=== PATIENT | male | born 2000 | race Caucasian/White ===

== ENCOUNTER 2021-03-02 05:38 | Emergency (ER) | payer OTHER ==
[~2021-03-02 05:38] MED LIST: ATARAX25 MG PO
[2021-03-02 06:38] LABS: BASOPHIL 0.7 % (0-2); EOSINOPHIL 6.5 % (0-5); HCT 40.6 % (42.0-52.0); HGB 13.5 g/dl (13.2-18.0); LYMPHOCYTE 45.2 % (15-48); MCH 29.8 pg (25.0-31.0); MCHC 33.3 g/dL (32.0-36.0); MCV 89.6 fL (78.0-100.0); MONOCYTE 10.5 % (0-12); MPV 11.8 fL (6.0-9.5); NRBC 0; PLT 166 K/uL (150-400); RBC 4.53 M/uL (4.70-6.00); RDW 12.5 % (11.5-14.0); WBC 6.8 K/uL (4.0-10.5)
[2021-03-02 06:56] LABS: BUN/CREAT RATIO (CALC) 13.9 RATIO; CREATININE 1.08 mg/dL (0.67-1.17); POTASSIUM 3.6 mmol/L (3.5-5.1)
== END 2021-03-02 07:10 | disposition home or self-care (01) ==
LOC: FER 05:38
PROVIDERS: Emergency Medicine
DX: F41.9 Anxiety disorder, unspecified (principal); R07.9 Chest pain, unspecified; F17.290 Nicotine dependence, other tobacco product, uncomplicated
CPT/HCPCS: 36415; 71045; 80048; 85025; 93005